=== PATIENT | male | born 1980 ===

== ENCOUNTER 2017-04-09 16:50 | Emergency (ER) ==
--- NOTE | 2017-04-09 19:39 | ED ---
Throat Pain/Nasal Congestion - HPI Summary HPI Summary: Patient presents with throat pain. He states this is a common occurrence and continues to happen when he is stressed (about once per year). He notes to "ulcers" which usually heal with prednisone. Denies other symptoms including cough, congestion, ear pain, eye pain and BARBER. - History of Current Complaint Hx Obtained From: Patient Onset/Duration: Sudden Onset Severity: Moderate Associated Signs And Symptoms: Positive: Dysphagia Cough: Nonproductive - Epiglottits Risk Factors Epiglottis Risk Factors: Negative <Shruthi Andrews - Last Filed: 04/09/17 19:34> <Mayra Clark - Last Filed: 04/09/17 21:52> - History of Current Complaint Chief Complaint: UCRespiratory Time Seen by Provider: 04/09/17 17:49 - Allergies/Home Medications Allergies/Adverse Reactions: Allergies Allergy/AdvReac Type Severity Reaction Status Date / Time Amoxicillin Allergy Hives Verified 04/09/17 17:12 Penicillins [PCN] Allergy Hives Verified 04/09/17 17:12 PMH/Surg Hx/FS Hx/Imm Hx Previously Healthy: Yes - Immunization History Hx Pertussis Vaccination: No Immunizations Up to Date: Unable to Obtain/Confirm Infectious Disease History: No Infectious Disease History: Denies: Traveled Outside the [place] in Last 30 Days - Social History Occupation: Employed Full-time Lives: With Family Alcohol Use: Occasionally Hx Substance Use: No Substance Use Type: Reports: None Hx Tobacco Use: Yes Smoking Status (MU): Current Some Day Smoker <Shruthi Andrews - Last Filed: 04/09/17 19:34> Review of Systems Constitutional: Negative Negative: Fever, Chills, Fatigue Eyes: Negative Positive: Sore Throat. Negative: Dental Pain, Ear Ache Cardiovascular: Negative Respiratory: Negative Genitourinary: Negative Positive: no symptoms reported, see HPI Musculoskeletal: Negative Neurological: Negative Psychological: Normal All Other Systems Reviewed And Are Negative: Yes <Shruthi Andrews - Last Filed: 04/09/17 19:34> Physical Exam Triage Information Reviewed: Yes Vital Signs On Initial Exam: Initial Vitals Temp Pulse Resp BP Pulse Ox 97.4 F 56 18 115/71 99 04/09/17 17:09 04/09/17 17:09 04/09/17 17:09 04/09/17 17:09 04/09/17 17:09 Completion Of Physical Exam Limited Due To: Dementia Appearance: Positive: Well-Appearing, Well-Nourished Skin: Positive: Warm, Skin Color Reflects Adequate Perfusion Head/Face: Positive: Normal Head/Face Inspection Eyes: Positive: EOMI, REAL, Conjunctiva Clear ENT: Positive: Pharyngeal erythema. Negative: TMs normal, TM bulging, TM dull, Tonsillar swelling, Tonsillar exudate, Trismus, Muffled/hoarse voice, Dental tenderness Neck: Positive: Supple, No Lymphadenopathy Respiratory/Lung Sounds: Positive: Clear to Auscultation, Breath Sounds Present Cardiovascular: Positive: Normal, RRR, Pulses are Symmetrical in both Upper and Lower Extremities Musculoskeletal: Positive: Normal, Strength/ROM Intact Neurological: Positive: Sensory/Motor Intact, Alert, Oriented to Person Place, Time, Speech Normal Psychiatric: Positive: Normal AVPU Assessment: Alert <Shruthi Andrews - Last Filed: 04/09/17 19:34> Vital Signs On Initial Exam: Initial Vitals Temp Pulse Resp BP Pulse Ox 97.4 F 56 18 115/71 99 04/09/17 17:09 04/09/17 17:09 04/09/17 17:09 04/09/17 17:09 04/09/17 17:09 <Mayra Clark - Last Filed: 04/09/17 21:52> Diagnostics - Vital Signs Vital Signs Temp Pulse Resp BP Pulse Ox 04/09/17 17:09 97.4 F 56 18 115/71 99 - Laboratory Lab Results: Lab Results 04/09/17 Range/Units 17:47 Group A Strep Rapid Negative (Negative) Lab Statement: Any lab studies that have been ordered have been reviewed, and results considered in the medical decision making process. <Shruthi Andrews - Last Filed: 04/09/17 19:34> - Vital Signs Vital Signs Temp Pulse Resp BP Pulse Ox 04/09/17 17:09 97.4 F 56 18 115/71 99 - Laboratory Lab Results: Lab Results 04/09/17 Range/Units 17:47 Group A Strep Rapid Negative (Negative) Lab Statement: Any lab studies that have been ordered have been reviewed, and results considered in the medical decision making process. <Mayra Clark - Last Filed: 04/09/17 21:52> EENT Course/Dx - Course Course Of Treatment: Patient evaluated for throat ulcers. Unable to visualized the ulcers, but erythema over the posterior pharynx is present. Patient states he will feel the ulcers when he is under stress - has happened 3 x before in the past 3 years and the symptoms will resolve with prednisone. He is given 6 days prednisone and magic mouth wash. - Differential Diagnoses Differential Diagnoses: Dental Abscess, Dental Caries, Pharyngitis, Tonsilitis <Shruthi Andrews - Last Filed: 04/09/17 19:34> <Mayra Clark - Last Filed: 04/09/17 21:52> - Diagnoses Provider Diagnoses: Mouth ulcer Discharge <Shruthi nAdrews - Last Filed: 04/09/17 19:34> <Mayra Clark - Last Filed: 04/09/17 21:52> - Discharge Plan Condition: Stable Disposition: HOME Prescriptions: Magic Mouth Was-JASON/MAAL/LIDO* 5 ml SWISH SPIT QID #100 ml predniSONE TAB* [Deltasone TAB*] 50 mg PO DAILY #6 tab MDD 1 Patient Education Materials: Canker Sores (ED) Additional Instructions: Dx: Mouth sores Often times these are viral Use the magic mouth wash for comfort Ibuprofen 600mg three times daily Prednisone 6 tabs: 1 tab daily in the morning for 6 days Attestation Statement User Type: Provider - I was available for consult. This patient was seen by the OLIVIA. The patient was not presented to, seen by, or examined by me. -Shaan <Mayra Clark - Last Filed: 04/09/17 21:52>
== END 2017-04-09 18:45 | disposition home or self-care (01) ==
LOC: UCEAST 16:50
DX: K12.1 Other forms of stomatitis (principal); Z88.0 Allergy status to penicillin; Z72.0 Tobacco use
CPT/HCPCS: 87651; 99202; G0463